=== PATIENT | male | born 1970 | race Caucasian/White ===

== ENCOUNTER 2024-07-11 04:28 | Day surgery (SDC) | payer BC, OTHER ==
[2024-07-07 16:02] VITALS: BMI 29.0
[2024-07-11 09:46] VITALS: BP 134/78; PULSE 64; RESP 16; TEMP 97.9
== END 2024-07-11 10:04 | disposition home or self-care (01) ==
LOC: JASU-ENDO 04:28
PROVIDERS: ATTEND Internal Medicine Gastroenterology
PROC: 0DJD8ZZ Inspection of Lower Intestinal Tract, Via Natural or Artificial Opening Endoscopic (ICD-10-PCS; principal; 2024-07-11 08:30)
DX: Z12.11 Encounter for screening for malignant neoplasm of colon (principal); K64.8 Other hemorrhoids